=== PATIENT | female | born 1955 ===

== ENCOUNTER 2017-06-15 07:48 | Outpatient (CLI) | payer OTHER ==
[~2017-06-15 07:48] MED LIST: ASA81 MG PO; COZAAR50 MG PO; METAFOLBIC TAB1 EACH PO; METFORMIN HCL850 MG PO; NABUMETONE500 MG PO; OMEGA-31000 MG PO; PERCOCET 5-3251 EACH PO; ZOCOR40 MG PO
== END 2017-06-15 08:04 | disposition home or self-care (01) ==
LOC: NUCLEAR 07:48
DX: M13.0 Polyarthritis, unspecified (principal)
CPT/HCPCS: 78306; A9503

== ENCOUNTER 2017-11-26 09:46 | Outpatient (CLI) | payer OTHER | END 2017-11-26 10:00 | disposition home or self-care (01) | LOC: NUCLEAR 09:46 | DX: R07.89 Other chest pain (principal); I11.9 Hypertensive heart disease without heart failure; R94.31 Abnormal electrocardiogram [ECG] [EKG] ==

== ENCOUNTER 2017-12-08 16:47 | Emergency (ER) | payer OTHER ==
[~2017-12-08] VITALS: Ht 160 cm; Wt 74.8 kg
[2017-12-09] MEDS ORDERED: CIPRO250 MG PO (04:43)
[2017-12-09] MEDS ORDERED: PEPCID40 MG PO (04:44)
[2017-12-09] MEDS ORDERED: ZOFRAN8 MG PO (04:44)
== END 2017-12-09 06:04 | disposition home or self-care (01) ==
LOC: ER 16:47
DX: K29.70 Gastritis, unspecified, without bleeding (principal); N39.0 Urinary tract infection, site not specified

== ENCOUNTER 2018-02-09 07:20 | Outpatient (CLI) | payer OTHER ==
[~2018-02-09 07:20] MED LIST changes: +CIPRO250 MG PO; +PEPCID40 MG PO; +ZOFRAN8 MG PO
== END 2018-02-09 07:31 | disposition home or self-care (01) ==
LOC: LAB 07:20
DX: I10 Essential (primary) hypertension (principal); R07.89 Other chest pain; D68.8 Other specified coagulation defects; E78.2 Mixed hyperlipidemia; N39.0 Urinary tract infection, site not specified

== ENCOUNTER 2024-12-08 08:54 | Outpatient (CLI) | payer OTHER | END 2024-12-08 08:56 | disposition home or self-care (01) | LOC: TOM 08:54 | PROVIDERS: ATTEND Surgery | DX: K43.0 Incisional hernia with obstruction, without gangrene (principal) | CPT/HCPCS: 74177; Q9965 ==